=== PATIENT | male | born 1970 ===

== ENCOUNTER 2025-03-13 09:08 | Outpatient (AMB) | payer BC, SELFPAY ==
--- NOTE | 2025-03-13 09:24 | MHC.OFFVIS ---
Vital Signs 03/13/25 09:26 Height 5 ft 10 in Weight 283 lb 4.704 oz BMI 40.6 BP 142/80 H Blood Pressure Location Lt brachial Position Sitting Pulse 67 Pulse Source Pulse Oximeter Pulse Oximetry (%) 99 Oxygen Delivery Method Room Air Intake Visit Reasons: Sleep apnea Allergies No Known Allergies Allergy (Verified 03/13/25 09:29) Medication List - Last Reconciled 03/13/25 by Johnna Arauz LPN No Known Home Meds HPI HPI Sleep apnea: Details: 55-year-old gentleman, former approximately 5 pack-year smoker, quit approximately 20 years prior with underlying history of severe obstructive sleep apnea diagnosed with sleep study in 2021 currently not on CPAP therapy, childhood asthma, and recent bronchitic exacerbation referred for pulmonary evaluation. Patient at this time denies any pulmonary related concerns or complaints. He is currently on no bronchodilator therapy. He does have family history of lung disease including asthma in his first-degree relatives. [facility] Social History (Updated 03/13/25 @ 09:30 by Johnna Arauz LPN) Patient Tobacco Use Status: Former Tobacco user Tobacco use type: Cigarette Years Smoked: 5-6 Review of Systems Const Denies daytime sleepiness, Denies excessive sweating, Denies fatigue, Denies fever(s), Denies lethargy, Denies malaise, Denies night sweats, Denies snoring and Denies weight loss Eyes Denies blurry vision and Denies itchy eyes ENT Denies nasal congestion, Denies post nasal drip, Denies sinus pain, Denies sinus pressure and Denies other ( Thrush) Card Denies chest pain, Denies pedal edema, Denies dyspnea, Denies orthopnea and Denies paroxysmal nocturnal dyspnea Resp Denies cough, Denies hemoptysis, Denies excessive phlegm production, Denies dyspnea, Denies snoring and Denies wheezing GI Denies abdominal pain and Denies heartburn Musc Denies myalgias, Denies arthralgias and Denies joint swelling Skin/Breast Denies rash Neuro Denies memory loss and Denies seizure-like activity Psych Denies abnormal sleep pattern, Denies anxiety and Denies memory loss Endo Denies excessive sweating, Denies fatigue and Denies heat intolerance Luís/Lymph Denies easy bruising Aller/Immun Denies itchy eyes, Denies seasonal rhinorrhea and Denies wheezing Physical Exam Vital Signs: Last Vital Signs Pulse 67 03/13/25 09:26 BP 142/80 H 03/13/25 09:26 Pulse Ox 99 03/13/25 09:26 Oxygen Delivery Method Room Air 03/13/25 09:26 BMI result Body Mass Index 40.6 Const General: no acute distress and alert Nutritional Appearance: obese Orientation/consciousness: Other orientation findings ( oriented) HEENT Head: Yes atraumatic Eyes General: appearance normal, both eyes and all related structures Sclerae: sclerae normal EOM: EOMs intact bilaterally Neck Neck: Yes supple Lymphatic: no lymphadenopathy noted Resp Effort & Inspection: normal respiratory effort and no use of accessory muscles Auscultation: clear to auscultation bilaterally Cardio Rate: regular rate Rhythm: regular rhythm Heart sounds: no gallops, no murmurs and no rubs Skin General skin exam: other ( warm) Extrem General: No clubbing, No cyanosis and No edema Assessment & Plan Assessment & Plan (1) KG (obstructive sleep apnea): Code(s): G47.33 - Obstructive sleep apnea (adult) (pediatric) Category: Medical Plan: Results of sleep study from 2021 reviewed, underlying severe obstructive sleep apnea. Will start on APAP therapy. (2) Asthma: Code(s): J45.909 - Unspecified asthma, uncomplicated Category: Medical Plan: Likely underlying asthma of unclear severity. Will obtain full PFT. Orders: Orders PFT pulmonary function test Today J45.909 - Unspecified asthma, uncomplicated Coding Level of Care Code New Pt Level 4 (92090) Diagnoses KG (obstructive sleep apnea) G47.33 Asthma J45.909
[2025-03-13 09:26] VITALS: BP 142/80; PULSE 67; O2SAT 99; BMI 40.6
--- OUTSIDE RECORDS SUMMARY | 2025-03-13 10:05 | XMS_ITS ---
Author Name [facility] Organization Unknown Care Team Organization Name Specialty Phone Email Start Date End Da skip [facility] Jeferson Rosas Primary [facility] 09/21/20222023
--- OUTSIDE RECORDS SUMMARY | 2025-03-13 10:05 | XMS_ITS | Clinical Summary ---
Author Organization [employer] [facility] ity Address [address] [place] [address] Care Team Providers Care Outboard Motor Mechanic Name Role Phone Jeferson Rosas MD Primary Care Provider Surgical History Surgery Date Site/Laterality Comments OTHER SURGICAL HISTORY PROCEDURE: DENIES PREVIOUS SURGERY Medical History Medical History Date Comments Obesity 07/24/2008 DX:Obesity Family History Medical History Relation Name Comments Hypertension Brother 1 Alzheimer's disease Father Hyperlipidemia Father Hypertension Father Hyperlipidemia Mother Hypertension Mother Relation Name Status Comments Brother 1 Alive back pain, DISH Brother 2 Alive Father dementia Alzhei mers Mother Alive anxiety, htn, v aricose veins Sister Alive Social History Tobacco Use Types Packs/Day Years Used Date Smoking Tobacco: Former Cigarettes 0.3 13 0 07/17/1986 - 07/17/1999 Smokeless Tobacco: Never Alcohol Use Standard Drinks/Week Comments Not Currently 0 (1 standard drink = 0.6 oz pur e alcohol) Sex and Gender Information Value Date Recorded Sex Assigned at Not on file Legal Sex Male 10:46 PM EST Gender Identity Not on file Sexual Orientation Not on file Obstetrics History Last Filed Vital Signs Vital Sign Reading Time Taken Comments Blood Pressure 134/76 04/10/2024 9:45 AM EDT Pulse 73 04/10/2024 9:45 AM EDT Temperature - - Respiratory Rate - - Oxygen Saturation - - Inhaled Oxygen Concentration - - Weight 137 kg (302 lb 11.2 oz) 04/10/2024 9:45 A M EDT Height 179.1 cm (5' 10.5 ) 06/15/2022 9:04 AM ES T Body Mass Index 42.82 06/15/2022 9:04 AM EST Plan of Treatment Health Maintenance Due Date Last Done Comments Hepatitis B Vaccines (1 of 3 - 19+ 3-dose series) 02/04/1988 Pneumococcal Vaccine: 50+ Years (1 of 1 - PCV) 2019 Zoster Vaccines (1 of 2) 2019 Cholesterol Screening (Lipid Panel) 06/19/2022 Colorectal Cancer Screening: Colonoscopy 06/19/2022 HIV Screening 06/19/2022 Hepatitis C Screening 06/19/2022 Social Influencers of Health Screening 06/19/2022 Hypertension/CHF/CAD Annual BMP Blood Test 06/26/2022 COVID-19 Vaccine (4 - 2023-2 5 season) 2024 06/18/2021, 11/21/2020, 10/31/2020 Depression Screening 07/17/2024 Influenza Vaccine (#1) 2025 , 04/21/2023, 06/21/2021 DTaP,Tdap,and Td Vaccines (2 - Td or Tdap) 06/21/2031 06/21/2021 HIB Vaccines Aged Out No longer eligi ble based on patient's age to complete this topic HPV Vaccines Aged Out No longer eligi ble based on patient's age to complete this topic Hepatitis A Vaccines Aged Out No long er eligible based on patient's age to complete this topic IPV Vaccines Aged Out No longer eligi ble based on patient's age to complete this topic MMR Vaccines Aged Out No longer eligi ble based on patient's age to complete this topic Meningococcal ACWY Vaccine Aged Out N o longer eligible based on patient's age to complete this topic Meningococcal B Vaccine Aged Out No l onger eligible based on patient's age to complete this topic RSV Immunization Patients Under 20 months Aged Out No longer eligible b ased on patient's age to complete this topic Varicella Vaccines Aged Out No longer eligible based on patient's age to complete this topic Care Teams Outboard Motor Mechanic Relationship Specialty Start Date End Date Jeferson Rosas MD [address] [place] [address] [place] [address] PCP - General 03/02/21
== END 2025-03-13 09:53 | disposition home or self-care (01) ==
PROVIDERS: PCP Physician Assistant Medical; Visit Provider Internal Medicine Pulmonary Disease
DX: G47.33 Obstructive sleep apnea (adult) (pediatric) (principal); J45.909 Unspecified asthma, uncomplicated
CPT/HCPCS: 99204

== ENCOUNTER 2025-05-15 15:25 | Outpatient (REF) | payer BC, SELFPAY ==
--- NOTE | 2025-05-15 15:43 | PFT_ITS ---
Flows: FEV1: 88 % of predicted at 3.26 L FVC: 86 % of predicted at 4.10 L FEV1/FVC: 80 % Bronchodilator response: Absent Volumes: Total lung capacity: 84 % of predicted at 6.09 L Residual volume: 104 % of predicted at 2.16 L Slow vital capacity: 75 % of predicted at 3.92 L Expiratory reserve volume: 31 % of predicted at 0.43 L Diffusion capacity: Normal Impression: No obstructive or restrictive ventilatory defect. No bronchodilator response. Decreased expiratory reserve volume suggests extrathoracic restriction likely secondary to abdominal obesity. MTDD
[2025-05-15 16:24] VITALS: PULSE 70
--- OUTSIDE RECORDS SUMMARY | 2025-05-15 17:59 | XMS_ITS | Clinical Summary ---
Author Organization [employer] [facility] ity Address [address] [place] [address] Care Team Providers Care Hand Candle Dipper Name Role Phone Jeferson Rosas MD Primary Care Provider [phone] Surgical History Surgery Date Site/Laterality Comments OTHER [...] Health Maintenance Due Date Last Done Comments Colorectal Cancer Screening: Colonoscopy 1969 Hepatitis B Vaccines (1 of 3 - 19+ 3-dose series) 02/04/1988 Pneumococcal Vaccine: 50+ Years (1 of 1 - PCV) 2019 RSV Immunization Adult Patients (1 - Risk 50-74 years 1-dose series) 2019 Zoster Vaccines (1 of 2) 2019 Cholesterol Screening (Lipid Panel) 06/19/2022 HIV Screening 06/19/2022 Hepatitis C Screening 06/19/2022 Social Influencers of Health Screening 06/19/2022 Hypertension/CHF/CAD Annual BMP Blood Test 06/26/2022 Depression Screening 07/17/2024 COVID-19 Vaccine (4 - 2024-2 6 season) 2025 06/18/2021, 11/21/2020, 10/31/2020 Influenza Vaccine (#1) 2025 4, 04/21/2023, 06/21/2021 DTaP,Tdap,and Td Vaccines (2 - [...] age to complete this topic Care Teams Hand Candle Dipper Relationship Specialty Start Date End Date Jeferson Rosas MD [address] [place] [address] PCP - General 03/02/21
== END 2025-05-15 15:26 | disposition home or self-care (01) ==
LOC: HO.RESP 15:25
PROVIDERS: PCP Physician Assistant Medical; Visit Provider Internal Medicine Pulmonary Disease
DX: J45.909 Unspecified asthma, uncomplicated (principal); Z87.891 Personal history of nicotine dependence
CPT/HCPCS: 94060; 94640; 94727; 94729

== ENCOUNTER → 2025-05-15 15:43 | Outpatient (BNV) | payer BC, SELFPAY | PROVIDERS: PCP Physician Assistant Medical; Visit Provider Internal Medicine Pulmonary Disease | DX: J45.909 Unspecified asthma, uncomplicated (principal) | CPT/HCPCS: 94060; 94727; 94729 ==

== ENCOUNTER 2025-05-16 15:22 | Outpatient (AMB) | payer BC, SELFPAY ==
--- NOTE | 2025-05-16 15:28 | MHC.OFFVIS ---
Vital Signs 05/16/25 15:29 Height 5 ft 10 in Weight 283 lb 4.704 oz BMI 40.6 BP 142/84 H Blood Pressure Location Lt brachial Position Sitting Pulse 68 Pulse Source Pulse Oximeter Pulse Oximetry (%) 98 Oxygen Delivery Method Room Air Intake Visit Reasons: Sleep apnea/PFT Follow Up [employer] Required: No Online Health [employer] Fitness Coach Services: [employer] Offered & Declined Allergies No Known Allergies Allergy (Verified 05/16/25 15:31) HPI HPI Sleep apnea/PFT Follow Up: Details: 55-year-old gentleman, former approximately 5 pack-year smoker, quit approximately 20 years prior with underlying history of severe obstructive sleep apnea diagnosed with sleep study in 2021 currently not on CPAP therapy, childhood asthma, and recent bronchitic exacerbation referred for pulmonary evaluation. Patient at this time denies any pulmonary related concerns or complaints. He is currently on no bronchodilator therapy. He does have family history of lung disease including asthma in his first-degree relatives. After the last office visit he was started on CPAP with significant improvement in his AHI, however he developed severe diarrhea that tracks his CPAP use, resolving when he is is not using CPAP and coming back when he starts using the machine. [facility] Social History Patient Tobacco Use Status: Former Tobacco user Tobacco use type: Cigarette Years Smoked: 5-6 Review of Systems Const Denies daytime sleepiness, Denies excessive sweating, Denies fatigue, Denies fever(s), Denies lethargy, Denies malaise, Denies night sweats, Denies snoring and Denies weight loss Eyes Denies blurry vision and Denies itchy eyes ENT Denies nasal congestion, Denies post nasal drip, Denies sinus pain, Denies sinus pressure and Denies other ( Thrush) Card Denies chest pain, Denies pedal edema, Denies dyspnea, Denies orthopnea and Denies paroxysmal nocturnal dyspnea Resp Denies cough, Denies hemoptysis, Denies excessive phlegm production, Denies dyspnea, Denies snoring and Denies wheezing GI Denies abdominal pain and Denies heartburn Musc Denies myalgias, Denies arthralgias and Denies joint swelling Skin/Breast Denies rash Neuro Denies memory loss and Denies seizure-like activity Psych Denies abnormal sleep pattern, Denies anxiety and Denies memory loss Endo Denies excessive sweating, Denies fatigue and Denies heat intolerance Luís/Lymph Denies easy bruising Aller/Immun Denies itchy eyes, Denies seasonal rhinorrhea and Denies wheezing Physical Exam Vital Signs: Last Vital Signs Pulse 68 05/16/25 15:29 BP 142/84 H 05/16/25 15:29 Pulse Ox 98 05/16/25 15:29 Oxygen Delivery Method Room Air 05/16/25 15:29 BMI result Body Mass Index 40.6 Const General: no acute distress and alert Nutritional Appearance: not obese Orientation/consciousness: Other orientation findings ( oriented) HEENT Head: Yes atraumatic Eyes General: appearance normal, both eyes and all related structures Sclerae: sclerae normal EOM: EOMs intact bilaterally Neck Neck: Yes supple Lymphatic: no lymphadenopathy noted Resp Effort & Inspection: normal respiratory effort and no use of accessory muscles Auscultation: clear to auscultation bilaterally Cardio Rate: regular rate Rhythm: regular rhythm Heart sounds: no gallops, no murmurs and no rubs Skin General skin exam: other ( warm) Extrem General: No clubbing, No cyanosis and No edema Assessment & Plan Assessment & Plan (1) KG (obstructive sleep apnea): Code(s): G47.33 - Obstructive sleep apnea (adult) (pediatric) Category: Medical Plan: Unable to tolerate CPAP secondary to diarrhea. Discussed with the patient other modalities for severe KG treatment including inspire, ENT evaluation, weight loss. Patient at this time wants to consider his options. (2) Asthma: Code(s): J45.909 - Unspecified asthma, uncomplicated Category: Medical Plan: Results of pulmonary function test reviewed, no suggestion of asthma at this time. Coding Level of Care Code Est Pt Level 4 (86291) Diagnoses KG (obstructive sleep apnea) G47.33 Asthma J45.909
--- OUTSIDE RECORDS SUMMARY | 2025-05-16 15:28 | XMS_ITS | Clinical Summary ---
Author Organization [employer] [facility] ity Address [address] [place] [address] Care Team Providers Care Paid Search Manager Name Role Phone Jeferson Rosas MD Primary Care Provider [phone] Surgical History Surgery Date Site/Laterality Comments OTHER [...] age to complete this topic Care Teams Paid Search Manager Relationship Specialty Start Date End Date Jeferson Rosas MD [address] [place] [address] PCP - General 03/02/21
[2025-05-16 15:29] VITALS: BP 142/84; PULSE 68; O2SAT 98; BMI 40.6
== END 2025-05-16 15:56 | disposition home or self-care (01) ==
PROVIDERS: PCP Physician Assistant Medical; Visit Provider Internal Medicine Pulmonary Disease
DX: G47.33 Obstructive sleep apnea (adult) (pediatric) (principal); J45.909 Unspecified asthma, uncomplicated
CPT/HCPCS: 99214